=== PATIENT | female | born 1970 | race Caucasian/White ===

== ENCOUNTER 2018-01-26 02:31 | Emergency (ER) | payer BC ==
[2018-01-26 02:39] VITALS: BP 174/96; PULSE 96; TEMP 98.2; BMI 26.6
[2018-01-26] MEDS ORDERED: TETRACAINE 0.5% HCL 0.6ML DROPPER.BOTTLE OD ONE (02:50)
[2018-01-26] MEDS ORDERED: FLUORESCEIN NA 1 EA STRIP OD ONE (02:50)
--- NOTE | 2018-01-26 03:10 | PDOC ---
History of Present Illness - General Chief Complaint: Eye Problem Stated Complaint: INJURY TO RIGHT EYE Time Seen by Provider: 01/26/18 02:45 History Source: Patient Exam Limitations: No Limitations - History of Present Illness Initial Comments: 01/26/18 03:05 HISTORY OF PRESENT ILLNESS: 47-year-old woman past medical history of hypertension presents emergency Department for evaluation of eye injury sustained while [place] by her dog. Patient was ready to leave for work and went to say goodbye to her pet dog when he jumped up take shoulder infection accident loose got his paws on her right eye. Patient states she felt a scratch immediately. She states she's had photophobia in her right eye since feeling injury. No recent travel or sick contacts. PAST MEDICAL HISTORY: HTN SURGICAL HISTORY: Denies ALLERGIES: No known drug allergies REVIEW OF SYSTEMS General/Constitutional: Denies fever or chills. Denies weakness, weight change. HEENT: Denies change in vision. Right eye pain. No ear pain or discharge. Denies sore throat. Cardiovascular: Denies chest pain or shortness of breath. Respiratory: Denies cough, wheezing, or hemoptysis. Gastrointestinal: Denies nausea, vomiting, diarrhea or constipation. Denies rectal bleeding. Genitourinary: Denies dysuria, frequency, or change in urination. Musculoskeletal: Denies joint or muscle swelling or pain. Denies neck or back pain. Skin and breasts: Denies rash or easy bruising. Neurologic: Denies headache, vertigo, loss of consciousness, or loss of sensation. Psychiatric: Denies depression or anxiety. Endocrine: Denies increased thirst. Denies abnormal weight change. Hematologic/Lymphatic: Denies anemia, easy bleeding, or history of blood clots. Allergic/Immunologic: Denies hives or skin allergy. Denies latex allergy. PHYSICAL EXAM General Appearance: Well-appearing, appropriately dressed. No apparent distress , no intoxication. HEENT: EOMI, PERRLA, normal ENT inspection, normal voice, TMs normal, pharynx normal. No conjunctival pallor. No photophobia, scleral icterus. Neck: Supple. Trachea midline. No tenderness, rigidity, carotid bruit, stridor , lymphadenopathy, or thyromegaly. Respiratory/Chest: Lungs CTAB. No shortness of breath, chest tenderness, respiratory distress, accessory muscle use. No crackles, rales, rhonchi, stridor , wheezing, dullness Cardiovascular: RRR. S1, S2. No JVD, murmur, bradycardia, tachycardia. Vascular Pulses: Dorsalis-Pedis (R): 2+, Dorsalis-Pedis (L): 2+ Gastrointestinal/Abdominal: Normal bowel sounds. Abdomen soft, non-distended. No tenderness or rebound tenderness. No organomegaly, pulsatile mass, guarding, hernia, hepatomegaly, splenomegaly. Lymphatic: No adenopathy, tenderness. Musculoskeletal/Extremities: Normal inspection. FROM of all extremities, normal capillary refill. Pelvis Stable. No CVA tenderness. No tenderness to extremities, pedal edema, swelling, erythema or deformity. Integumentary: Appropriate color, dry, warm. No cyanosis, erythema, jaundice or rash Neurologic: career agent II-XII intact. Fully oriented, alert. Appropriate mood/affect. Motor strength 5/5. No appreciable EOM palsy, facial droop or sensory deficit. Past History - Past Medical History Allergies/Adverse Reactions: Allergies Allergy/AdvReac Type Severity Reaction Status Date / Time No Allergy Information Allergy Verified 01/26/18 02:38 Available Home Medications: Ambulatory Orders Levothyroxine [Synthroid -] 150 mcg PO DAILY 04/14/14 Erythromycin 0.5% Eye Ointment [Erythromycin 0.5% Eye Ointment -] 1 applic OD QID #1 tube 01/26/18 Anemia: Yes Seizures: Yes Thyroid Disease: Yes - Immunization History Immunization Up to Date: Yes - Suicide/Smoking/Psychosocial Hx Smoking History: Never smoked Have you smoked in the past 12 months: No Information on smoking cessation initiated: No Hx Alcohol Use: No Drug/Substance Use Hx: No Substance Use Type: None *Physical Exam - Vital Signs Last Vital Signs Temp Pulse Resp BP Pulse Ox 98.2 F 96 H 20 174/96 H 99 01/26/18 02:38 01/26/18 02:38 01/26/18 02:38 01/26/18 02:38 01/26/18 02:38 Medical Decision Making - Medical Decision Making 01/26/18 03:07 A/P: 47-year-old woman with right eye pain status post getting scratched by her dog EYE EXAMINATION: Visual acuity: 20/25 in the left eye, 20/25 in the right eye, near, uncorrected The lid and lashes are normal. Extraocular movements are intact. The conjunctiva is clear without erythema, injection, or discharge The corneal surface post tetracaine and fluorescein reveals corneal abrasion to the 12-1o'clock position. There is no foreign body. The pupils are equal, round and reactive to light. The fundus shows normal vessels and normal discs. Erythromycin eye ointment Discharge *DC/Admit/Observation/Transfer Diagnosis at time of Disposition: Corneal abrasion, right Qualifiers: Encounter type: initial encounter Qualified Code(s): S05.01XA - Injury of conjunctiva and corneal abrasion without foreign body, right eye, initial encounter - Discharge Dispostion Disposition: HOME Condition at time of disposition: Stable Decision to Admit order: No - Prescriptions Prescriptions: Erythromycin 0.5% Eye Ointment [Erythromycin 0.5% Eye Ointment -] 1 applic OD QID #1 tube - Referrals Referrals: Gael Trevino MD [Staff Physician] - - Patient Instructions Additional Instructions: Rest, avoid rubbing eyes Wash hands, use eye drops as directed, wash hands after use May use eye lubricating drops as often as needed erythromycin ointment, one thin film 3 times a day for 5 days Tylenol or ibuprofen for pain relief Avoid contact with others until redness and discharge is gone from eyes. Followup with ophthalmology in one to 2 days for thorough exam Return to emergency department for worsened pain, swelling, vision problems. - Post Discharge Activity
[2018-01-26] MEDS ORDERED: ERYTHROMYCIN 0.5% OPHTHALMIC OINTMENT 3.5 GM TUBE OD ONE (03:13)
[2018-01-26] MEDS ORDERED: ERYTHROMYCIN 0.5% OPHTHALMIC OINTMENT 3.5 GM TUBE ONE (03:38)
[2018-01-26] MEDS ORDERED: TETRACAINE 0.5% OPHTH SOLN 2 ML BOTTLE ONE (03:38)
[2018-01-26] MEDS ORDERED: FLUORESCEIN NA 1 EA STRIP ONE ×2 (03:38→03:43)
== END 2018-01-26 04:06 | disposition home or self-care (01) ==
LOC: JER 02:31
DX: S05.01XA Injury of conjunctiva and corneal abrasion without foreign body, right eye, initial encounter (principal); W54.1XXA Struck by dog, initial encounter; Y93.89 Activity, other specified; Y92.89 Other specified places as the place of occurrence of the external cause; R56.9 Unspecified convulsions; E07.9 Disorder of thyroid, unspecified; D64.9 Anemia, unspecified
CPT/HCPCS: 99281-25

== ENCOUNTER 2021-03-19 10:05 | Emergency (ER) | payer BC, OTHER ==
[2021-03-19 10:24] VITALS: BP 123/81; PULSE 99; TEMP 99; BMI 27.7
[2021-03-19] MEDS ORDERED: BAMLANIVIMAB 700 MG, ETESEVIMAB 1,400 MG in SODIUM CHLORIDE 100 ML IVPB ONE (10:50)
[2021-03-19 12:00] LABS: HEMATOCRIT 35.2 % (32.4-45.2); HEMOGLOBIN 11.5 GM/dL (10.7-15.3); MCH 24.1 pg (25.7-33.7); MCHC 32.8 g/dl (32.0-36.0); MEAN CELL VOLUME 73.5 fl (80-96); MEAN PLT VOLUME 6.9 fl (7.5-11.1); PLATELET COUNT 245 10^3/uL (134-434); RBC 4.79 M/mm3 (3.60-5.2); RDW 19.1 % (11.6-15.6); WHITE BLOOD COUNT 3.5 K/mm3 (4.0-10.0)
[2021-03-19 12:17] LABS: CALCIUM 8.3 mg/dL (8.5-10.1)
[2021-03-19 12:18] LABS: BLOOD UREA NITROGEN 6.8 mg/dL (7-18)
[2021-03-19 12:21] LABS: CREATININE 0.5 mg/dL (0.55-1.3)
== END 2021-03-19 15:08 | disposition home or self-care (01) ==
LOC: JCOVINFU 10:05
DX: U07.1 COVID-19 (principal)
CPT/HCPCS: 36415; 80048; 85027; 99284-25; Q0245

== ENCOUNTER 2021-12-31 21:04 | Emergency (ER) | payer BC, OTHER ==
[2021-12-31 21:29] VITALS: RESP 18; TEMP 98.5; BMI 25.8
[2021-12-31] MEDS ORDERED: SODIUM CHLORIDE 0.9% 500 ML INFUS.BAG IV ONE (21:45)
[2021-12-31 22:33] LABS: BASO % 0.2 % (0-2.0); EOS % 0.2 % (0-4.5); HEMATOCRIT 36.5 % (32.4-45.2); LYMPH % 5.9 % (8-40); MCH 20.8 pg (25.7-33.7); MCHC 30.2 g/dl (32.0-36.0); MEAN CELL VOLUME 68.9 fl (80-96); MONO % 5.7 % (3.8-10.2); PLATELET COUNT 367 10^3/uL (134-434); RDW 20.4 % (11.6-15.6); WHITE BLOOD COUNT 12.9 K/mm3 (4.0-10.0)
[2021-12-31 22:54] LABS: CALCIUM 9.2 mg/dL (8.5-10.1)
[2021-12-31 22:55] LABS: ALBUMIN 4.1 g/dl (3.4-5.0); BLOOD UREA NITROGEN 18.2 mg/dL (7-18); MAGNESIUM 2.4 mg/dL (1.8-2.4)
[2021-12-31 22:56] LABS: ANISOCYTOSIS 3+; MACROCYTOSIS 0
[2021-12-31 22:57] LABS: CREATININE 0.8 mg/dL (0.55-1.3); PHOSPHOROUS 4.6 mg/dL (2.5-4.9)
[2021-12-31 22:59] LABS: BILIRUBIN,TOTAL 0.8 mg/dL (0.2-1); TOT PROT 7.4 g/dl (6.4-8.2)
[2021-12-31 23:02] LABS: N-TERMINAL BNP 31.7 pg/ml (5-125)
[2021-12-31 23:31] VITALS: BP 118/68; PULSE 63
[2021-12-31 23:36] LABS: URINE APPEARANCE CLEAR; URINE BILIRUBIN NEGATIVE (NEGATIVE); URINE COLOR YELLOW; URINE GLUCOSE (UA) 3+ (NEGATIVE); URINE KETONE TRACE (NEGATIVE); URINE LEUK ESTERASE NEGATIVE (NEGATIVE); URINE NITRITE NEGATIVE (NEGATIVE); URINE PROTEIN NEGATIVE (NEGATIVE); URINE UROBILINOGEN 0.2 mg/dL (0.2-1.0)
== END 2022-01-01 01:30 | disposition left against medical advice (07) ==
LOC: JER 21:04
DX: R55 Syncope and collapse (principal); R00.2 Palpitations
CPT/HCPCS: 0241U-QW; 36415; 70450-TC; 71045-TC-FY; 72125-TC; 80053; 81003; 83735; 83880; 84100; 84439; 84443; 84484; 85025; 87086; 87186; 93005; 93010; 99285-25